=== PATIENT | female | born 1945 | race Caucasian/White ===

== ENCOUNTER → 2018-11-07 | Outpatient (CLI) | payer OTHER, MEDICAID ==
[~2018-11-07] MED LIST: BUPIVACAINE 0.25% 30 ML SDV ONE; DEPO METHYLPREDNISOLONE 40 MG/ML SDV ONE; LIDOCAINE 1% 300 MG/30 ML SDV ONE; methylPREDNISolone SOD SUCC 125 MG/2 ML VIAL ONE
== END ==
LOC: FIMAGING 12:51
PROVIDERS: ATTEND Internal Medicine Hematology & Oncology
DX: M71.22 Synovial cyst of popliteal space [Baker], left knee (principal)
CPT/HCPCS: 20611; 76942; J1030; J2930